=== PATIENT | female | born 1980 | race Two or more races ===

== ENCOUNTER 2018-03-01 22:14 | Emergency (ER) | payer SELFPAY ==
[~2018-03-01] VITALS: Ht 152.4 cm; Wt 68.0 kg
[2018-03-01] MEDS ORDERED: ONDANSETRON PF 4 MG/2 ML VIAL. IV ONE (22:45)
[2018-03-01] MEDS ORDERED: fentaNYL PF VIAL 100 MCG/2 ML VIAL IV ONE (22:45)
[2018-03-01 22:47] LABS: BILIRUBIN,URINE NEGATIVE (NEG); CLARITY,URINE CLEAR; COLOR,URINE YELLOW; NITRITE,URINE NEGATIVE (NEG); PH,URINE 6.5; PROTEIN,URINE NEGATIVE (NEG-TRACE); UROBILINOGEN,URINE 0.2 mg/dL (0.2 mg/dL)
[2018-03-01 22:49] LABS: BASO % 0 % (0-3); EOS # 0.2 x10^3/uL (0.0-0.7); EOS % 2 % (0-3); HEMATOCRIT 39.9 % (36.0-47.0); HEMOGLOBIN 14.1 g/dL (12.0-15.5); LYMPH # 3.9 x10^3/uL (1.0-4.8); LYMPH % 31 % (24-48); MEAN CORPUSCULAR HEMOGLOBIN 30 pg (25-35); MEAN CORPUSCULAR HGB CONC 35 g/dL (31-37); MEAN CORPUSCULAR VOLUME 85 fL (79-100); MONO # 0.8 x10^3/uL (0.0-1.1); MONO % 6 % (0-9); NEUT # 7.6 x10^3uL (1.8-7.7); NEUT % 61 % (31-73); PLATELET COUNT 267 x10^3/uL (140-400); RED BLOOD COUNT 4.69 x10^6/uL (3.50-5.40); RED CELL DISTRIBUTION WIDTH 12.9 % (11.5-14.5); WHITE BLOOD COUNT 12.4 x10^3/uL (4.0-11.0)
[2018-03-01 22:54] LABS: CREATININE 0.9 mg/dL (0.6-1.0); GFR 70.1; POTASSIUM 3.7 mmol/L (3.5-5.1)
[2018-03-01 22:54] LABS: BACTERIA,URINE MODERATE /HPF (0-FEW); SQUAMOUS EPITHELIAL CELL,UR MOD /LPF
[2018-03-01 22:55] LABS: RBC,URINE 0 /HPF (0-2)
[2018-03-01 22:59] LABS: ALBUMIN 3.4 g/dL (3.4-5.0); ALBUMIN/GLOBULIN RATIO 0.7 (1.0-1.7); TOTAL BILIRUBIN 0.2 mg/dL (0.2-1.0)
[2018-03-01] MEDS ORDERED: FAMOTIDINE 20 MG/2 ML VIAL IVP ONE (23:00)
--- NOTE | 2018-03-01 23:42 | RAD ---
Examination: ABDOMEN LTD History: ruq pain x 5 hrs
ml gassed out
distened gb with gallstones, normal wall and cbd
rt inf kidney ?? parapelvic cyst Comparison/Correlation: None Findings: Right upper quadrant ultrasound exam was performed. Overlying bowel gas limits evaluation. There are a few calculi identified within the gallbladder measuring up to 2.2 cm diameter with associated shadowing. Gallbladder wall thickness is normal. Common bile duct diameter is unremarkable. No intrahepatic biliary dilatation. Inferior vena cava is unremarkable. Proximal pancreas is normal. Distal pancreas is obscured by bowel gas. Right kidney measures 9.8 cm x 6.17 x 5.4 cm. Parapelvic cysts involving the right kidney measuring up to 1 cm diameter appears to present. No calyceal distention identified. Portal venous flow is normal. Impression: Cholelithiasis without findings of acute cholecystitis or biliary dilatation. Electronically signed by: Aden Cho MD (03/01/2018 11:38 PM) [facility]
[2018-03-02] MEDS ORDERED: LIDO:MAALOX 1:1 20 ML SINGLE DOSE. SWSW ONE
--- NOTE | 2018-03-02 00:12 | PHYS DOC ---
Past Medical History Past Medical History: No Pertinent History Past Surgical History: Alcohol Use: None Drug Use: None Adult General Chief Complaint Chief Complaint: ABDOMINAL PAIN HPI HPI Patient is a 38 year old Malay-speaking speaking female presents acute onset epigastric pain starting approximately 5 hours prior to ED arrival. Pain is located midepigastric region is rated moderate to severe radiates to back. It is associated with nausea without vomiting. It is unrelieved with Tylenol or ibuprofen. Is not associated with diarrhea, constipation, or flank pain. No hematuria, dysuria or urinary frequency urgency. No prior abdominal surgeries. Additional history obtained from patient's spouse who is by bedside[] Review of Systems Review of Systems Review of symptoms as per history of present illness. All other review symptoms are negative. All other systems were reviewed and found to be within normal limits, except as documented in this note. Current Medications Current Medications Current Medications Medications (Trade) Dose Ordered Sig/Kristen Start Time Stop Time Status Last Admin Dose Admin Famotidine (Pepcid Vial) 20 mg 1X ONCE 03/01/18 23:00 03/01/18 23:01 DC 03/01/18 22:59 20 MG Fentanyl Citrate (Fentanyl 2ml Vial) 50 mcg 1X ONCE 03/01/18 22:45 03/01/18 22:46 DC 03/01/18 22:59 50 MCG Info (CONTRAST GIVEN -- Rx MONITORING) 1 each PRN DAILY PRN 03/02/18 00:45 03/04/18 00:44 Iohexol (Omnipaque 300 Mg/ml) 75 ml 1X ONCE 03/02/18 00:45 03/02/18 00:46 DC 03/02/18 00:43 75 ML Morphine Sulfate (Morphine Sulfate) 4 mg 1X ONCE 03/02/18 00:30 03/02/18 00:31 DC 03/02/18 00:54 4 MG Multi-Ingredient Mouthwash/Gargle (Gi Cocktail) 30 ml 1X ONCE 03/02/18 00:00 03/02/18 00:01 DC 03/02/18 00:28 30 ML Ondansetron HCl (Zofran) 4 mg 1X ONCE 03/01/18 22:45 03/01/18 22:46 DC 03/01/18 22:59 4 MG Allergies Allergies Allergies Coded Allergies Type Severity Reaction Last Updated Verified No Known Drug Allergies 03/01/18 No Physical Exam Physical Exam Constitutional: Well developed, well nourished, discomfort secondary to pain.. [ ] HENT: Normocephalic, atraumatic, bilateral external ears normal, oropharynx moist, no oral exudates, nose normal. [] Eyes: PERRLA, EOMI, conjunctiva normal. [] Neck: Normal range of motion. [] Cardiovascular:Heart rate regular rhythm, no murmur [] Lungs & Thorax: Bilateral breath sounds clear to auscultation [] Abdomen: Bowel sounds normal, soft, use midepigastric pain with guarding.. [] Skin: Warm, dry, no erythema, no rash. [] Back: No tenderness, no CVA tenderness. [] Extremities: No tenderness, no edema. [] Neurologic: Alert and oriented X 3, normal motor function, normal sensory function, no focal deficits noted. [] Psychologic: Affect normal, judgement normal, mood normal. [] Current Patient Data Vital Signs Vital Signs Date Time Temp Pulse Resp B/P (MAP) Pulse Ox O2 Delivery O2 Flow Rate FiO2 03/02/18 00:56 97 22 150/96 (114) 100 03/02/18 00:54 Room Air 03/01/18 22:26 98.1 98.1 Lab Values Laboratory Tests Test 03/01/18 22:20 03/01/18 22:29 03/01/18 22:35 Urine Collection Type Unknown Urine Color Yellow Urine Clarity Clear Urine pH 6.5 Urine Specific [place] 1.015 Urine Protein Negative mg/dL (NEG-TRACE) Urine Glucose (UA) Negative mg/dL (NEG) Urine Ketones (Stick) Negative mg/dL (NEG) Urine Blood Negative (NEG) Urine Nitrite Negative (NEG) Urine Bilirubin Negative (NEG) Urine Urobilinogen Dipstick 0.2 mg/dL (0.2 mg/dL) Urine Leukocyte Esterase Moderate (NEG) Urine RBC 0 /HPF (0-2) Urine WBC 5-10 /HPF (0-4) Urine Squamous Epithelial Cells Mod /LPF Urine Bacteria Moderate /HPF (0-FEW) Urine Mucus Mod /LPF POC Urine HCG, Qualitative Hcg negative (Negative) White Blood Count 12.4 x10^3/uL (4.0-11.0) H Red Blood Count 4.69 x10^6/uL (3.50-5.40) Hemoglobin 14.1 g/dL (12.0-15.5) Hematocrit 39.9 % (36.0-47.0) Mean Corpuscular Volume 85 fL (79-100) Mean Corpuscular Hemoglobin 30 pg (25-35) Mean Corpuscular Hemoglobin Concent 35 g/dL (31-37) Red Cell Distribution Width 12.9 % (11.5-14.5) Platelet Count 267 x10^3/uL (140-400) Neutrophils (%) (Auto) 61 % (31-73) Lymphocytes (%) (Auto) 31 % (24-48) Monocytes (%) (Auto) 6 % (0-9) Eosinophils (%) (Auto) 2 % (0-3) Basophils (%) (Auto) 0 % (0-3) Neutrophils # (Auto) 7.6 x10^3uL (1.8-7.7) Lymphocytes # (Auto) 3.9 x10^3/uL (1.0-4.8) Monocytes # (Auto) 0.8 x10^3/uL (0.0-1.1) Eosinophils # (Auto) 0.2 x10^3/uL (0.0-0.7) Basophils # (Auto) 0.0 x10^3/uL (0.0-0.2) Sodium Level 139 mmol/L (136-145) Potassium Level 3.7 mmol/L (3.5-5.1) Chloride Level 103 mmol/L (98-107) Carbon Dioxide Level 27 mmol/L (21-32) Anion Gap 9 (6-14) Blood Urea Nitrogen 14 mg/dL (7-20) Creatinine 0.9 mg/dL (0.6-1.0) Estimated GFR (Cockcroft-Gault) 70.1 BUN/Creatinine Ratio 16 (6-20) Glucose Level 106 mg/dL (70-99) H Calcium Level 9.0 mg/dL (8.5-10.1) Total Bilirubin 0.2 mg/dL (0.2-1.0) Aspartate Amino Transferase (AST) 25 U/L (15-37) Alanine Aminotransferase (ALT) 56 U/L (14-59) Alkaline Phosphatase 83 U/L (46-116) Total Protein 8.0 g/dL (6.4-8.2) Albumin 3.4 g/dL (3.4-5.0) Albumin/Globulin Ratio 0.7 (1.0-1.7) L Lipase 188 U/L (73-393) Laboratory Tests 03/01/18 22:35 Laboratory Tests 03/01/18 22:35 EKG EKG [] Radiology/Procedures Radiology/Procedures [Abdominal ultrasound: Cholelithiasis without evidence of cholecystitis.] Course & Med Decision Making Course & Med Decision Making Pertinent Labs and Imaging studies reviewed. (See chart for details) [IV pain medication, and antacids and nausea medication given with limited relief. Gallbladder ultrasound does not show evidence of cholecystitis. GI cocktail given with] Dragon Disclaimer Dragon Disclaimer This electronic medical record was generated, in whole or in part, using a voice recognition dictation system. Departure Departure Impression: Primary Impression: Cholelithiasis Disposition: HOME, SELF-CARE Condition: GOOD Referrals: NO PCP (PCP) Scripts Promethazine Hcl (PROMETHAZINE HCL) 12.5 Mg Tablet 1 TAB PO Q6-8HRS, #10 TAB 1 Refill Prov: ELÍAS MORELOS DO 03/02/18 Hydrocodone/Acetaminophen (Hydrocodone-Acetamin 5-325 mg) 1 Each Tablet 1 EACH PO Q4-6HRS PRN for PAIN, #10 TAB Prov: ELÍAS MORELOS DO 03/02/18 ELÍAS MORELOS DO Mar 02, 2018 00:12
[2018-03-02] MEDS ORDERED: MORPHINE SULFATE 4 MG/ML VIAL. IV ONE (00:30)
[2018-03-02] MEDS ORDERED: CONTRAST GIVEN. MC PRN (00:45)
[2018-03-02] MEDS ORDERED: IOHEXOL 300 MG/ML 100ML VIAL. IV ONE (00:45)
[2018-03-02 00:56] VITALS: BP 150/96
--- NOTE | 2018-03-02 00:59 | RAD ---
CT abdomen pelvis with contrast. HISTORY: Epigastric pain CT scan of the abdomen and pelvis was done using 75 mL Omnipaque 300 contrast. Lung bases are clear. There is no effusion. There is spondylolysis at L5 with grade 1 spondylolisthesis. Liver is normal in appearance. The gallbladder is distended without a calcified gallstone. The gallbladder wall is not thickened. Spleen and adrenal glands are normal. Pancreas is normal. There is no mass or hydronephrosis in the kidneys. There is no free air or ascites or bowel obstruction. Bowel pattern is normal. Appendix was normal. Uterus and ovaries are unremarkable. IMPRESSION: 1. Distended gallbladder. 2. Normal appendix. 3. No bowel obstruction or other acute finding in the abdomen or pelvis. PQRS Compliance Statement: One or more of the following individualized dose reduction techniques were utilized for this examination: 1. Automated exposure control 2. Adjustment of the mA and/or kV according to patient size 3. Use of iterative reconstruction technique Electronically signed by: Chirag Turner MD (03/02/2018 12:55 AM) [email or web address]
[2018-03-02] MEDS ORDERED: HYDR-2759 PO (01:26)
[2018-03-02] MEDS ORDERED: PROM12.58 PO (01:26)
[2018-03-02] MEDS ORDERED: IOHEXOL 300 MG/ML 100ML VIAL. ONE (05:27)
--- NOTE | 2018-03-06 18:01 | VNOTE ---
CALL BACK NOTE CALL BACK Microbiology 03/01/18 Urine Culture - Final, Complete 03/01/18 Urine Culture Result 1 (RIAZ) - Final, Complete 03/01/18 Antimicrobic Susceptibility - Final, Complete Called patient regarding her urine culture, she does not speak Armenian. Prescriptions sent to her address CHLOE CALIXTO APRN Mar 06, 2018 18:01
== END 2018-03-02 01:42 | disposition home or self-care (01) ==
LOC: ER 22:14
DX: K80.20 Calculus of gallbladder without cholecystitis without obstruction (principal); Z98.890 Other specified postprocedural states
CPT/HCPCS: 36415; 74177; 76705; 80053; 81001; 81025; 83690; 85025; 87086; 96374; 96375; 99284; J2270; J2405; J3010; J3490; Q9967; 87186

== ENCOUNTER 2018-10-08 17:58 | Emergency (ER) | payer SELFPAY ==
[~2018-10-08] VITALS: Ht 162.6 cm; Wt 82.6 kg
[~2018-10-08 17:58] MED LIST: HYDR-2759 PO; PROM12.58 PO
[2018-10-08] MEDS ORDERED: fentaNYL PF VIAL 100 MCG/2 ML VIAL IV ONE (19:00)
[2018-10-08] MEDS ORDERED: IV NORMAL SALINE 1000ML BAG 1,000 ML IV ONE (19:00)
[2018-10-08] MEDS ORDERED: ONDANSETRON PF 4 MG/2 ML VIAL. IV ONE (19:00)
[2018-10-08 19:20] LABS: BASO % 0 % (0-3); EOS # 0.2 x10^3/uL (0.0-0.7); EOS % 2 % (0-3); HEMATOCRIT 40.7 % (36.0-47.0); HEMOGLOBIN 14.2 g/dL (12.0-15.5); LYMPH # 2.4 x10^3/uL (1.0-4.8); LYMPH % 25 % (24-48); MEAN CORPUSCULAR HEMOGLOBIN 30 pg (25-35); MEAN CORPUSCULAR HGB CONC 35 g/dL (31-37); MEAN CORPUSCULAR VOLUME 85 fL (79-100); MONO # 0.7 x10^3/uL (0.0-1.1); MONO % 8 % (0-9); NEUT # 6.1 x10^3/uL (1.8-7.7); NEUT % 65 % (31-73); PLATELET COUNT 264 x10^3/uL (140-400); RED BLOOD COUNT 4.78 x10^6/uL (3.50-5.40); RED CELL DISTRIBUTION WIDTH 13.6 % (11.5-14.5); WHITE BLOOD COUNT 9.5 x10^3/uL (4.0-11.0)
[2018-10-08 19:30] LABS: PREG TEST PT QUAL NEGATIVE (NEG)
[2018-10-08 19:32] LABS: CALCIUM 8.7 mg/dL (8.5-10.1); CREATININE 0.7 mg/dL (0.6-1.0); GFR 93.6; POTASSIUM 3.6 mmol/L (3.5-5.1)
[2018-10-08 19:34] LABS: ALBUMIN 3.4 g/dL (3.4-5.0); ALBUMIN/GLOBULIN RATIO 0.8 (1.0-1.7); C-REACTIVE PROTEIN 13.1 mg/L (0-3.3); TOTAL BILIRUBIN 0.2 mg/dL (0.2-1.0); TOTAL PROTEIN 7.6 g/dL (6.4-8.2)
[2018-10-08 19:50] LABS: BILIRUBIN,URINE NEGATIVE (NEG); CLARITY,URINE CLEAR; COLOR,URINE YELLOW; NITRITE,URINE NEGATIVE (NEG); PH,URINE 6.5; PROTEIN,URINE NEGATIVE (NEG-TRACE)
[2018-10-08 19:57] LABS: SQUAMOUS EPITHELIAL CELL,UR MOD /LPF
[2018-10-08 19:58] LABS: BACTERIA,URINE FEW /HPF (0-FEW); RBC,URINE 0 /HPF (0-2); WBC,URINE 0 /HPF (0-4)
--- NOTE | 2018-10-08 20:16 | PHYS DOC ---
Past Medical History Past Medical History: No Pertinent History Past Surgical History: Alcohol Use: None Drug Use: None Adult General Chief Complaint Chief Complaint: ABDOMINAL PAIN HPI HPI Patient is a 38 year old female presents with suprapubic pain, multiple episodes of watery stool/diarrhea for the past 2 days. Reports urinary frequency urgency. No vomiting. No fever chills, sweats. No flank pain. Last menstrual period was 10 days ago. No prior abdominal surgery. [] Review of Systems Review of Systems Review symptoms as per history of present illness. All other review symptoms are negative. All other systems were reviewed and found to be within normal limits, except as documented in this note. Current Medications Current Medications Current Medications Medications (Trade) Dose Ordered Sig/Kristen Start Time Stop Time Status Last Admin Dose Admin Fentanyl Citrate (Fentanyl 2ml Vial) 50 mcg 1X ONCE 10/08/18 19:00 10/08/18 19:01 DC 10/08/18 19:27 50 MCG Info (CONTRAST GIVEN -- Rx MONITORING) 1 each PRN DAILY PRN 10/08/18 20:45 10/10/18 20:44 Iohexol (Omnipaque 300 Mg/ml) 75 ml 1X ONCE 10/08/18 20:30 10/08/18 20:33 DC 10/08/18 21:01 75 ML Ondansetron HCl (Zofran) 4 mg 1X ONCE 10/08/18 19:00 10/08/18 19:01 DC 10/08/18 19:27 4 MG Sodium Chloride 1,000 ml @ 1,000 mls/hr 1X ONCE 10/08/18 19:00 10/08/18 19:59 DC 10/08/18 19:27 1,000 MLS/HR Allergies Allergies Allergies Coded Allergies Type Severity Reaction Last Updated Verified No Known Drug Allergies 03/01/18 No Physical Exam Physical Exam Constitutional: Well developed, well nourished, no acute distress, non-toxic appearance. [] HENT: Normocephalic, atraumatic, bilateral external ears normal, oropharynx moist, no oral exudates, nose normal. [] Eyes: PERRLA, EOMI, conjunctiva normal, no discharge. [] Neck: Normal range of motion, no tenderness, supple, no stridor. [] Cardiovascular:Heart rate regular rhythm, no murmur [] Lungs & Thorax: Bilateral breath sounds clear to auscultation [] Abdomen: Bowel sounds normal, soft, no tenderness, no masses, no pulsatile masses. [] Skin: Warm, dry, no erythema, no rash. [] Back: No tenderness, no CVA tenderness. [] Extremities: No tenderness, no cyanosis, no clubbing, ROM intact, no edema. [] Neurologic: Alert and oriented X 3, normal motor function, normal sensory function, no focal deficits noted. [] Psychologic: Affect normal, judgement normal, mood normal. [] Current Patient Data Vital Signs Vital Signs Date Time Temp Pulse Resp B/P (MAP) Pulse Ox O2 Delivery O2 Flow Rate FiO2 10/08/18 20:31 73 129/83 (98) 98 Room Air 10/08/18 18:43 98.4 16 98.4 Lab Values Laboratory Tests Test 10/08/18 18:37 10/08/18 19:10 Urine Collection Type Unknown Urine Color Yellow Urine Clarity Clear Urine pH 6.5 Urine Specific [place] 1.010 Urine Protein Negative mg/dL (NEG-TRACE) Urine Glucose (UA) Negative mg/dL (NEG) Urine Ketones (Stick) Negative mg/dL (NEG) Urine Blood Negative (NEG) Urine Nitrite Negative (NEG) Urine Bilirubin Negative (NEG) Urine Urobilinogen Dipstick 1.0 mg/dL (0.2 mg/dL) Urine Leukocyte Esterase Negative (NEG) Urine RBC 0 /HPF (0-2) Urine WBC 0 /HPF (0-4) Urine Squamous Epithelial Cells Mod /LPF Urine Bacteria Few /HPF (0-FEW) White Blood Count 9.5 x10^3/uL (4.0-11.0) Red Blood Count 4.78 x10^6/uL (3.50-5.40) Hemoglobin 14.2 g/dL (12.0-15.5) Hematocrit 40.7 % (36.0-47.0) Mean Corpuscular Volume 85 fL (79-100) Mean Corpuscular Hemoglobin 30 pg (25-35) Mean Corpuscular Hemoglobin Concent 35 g/dL (31-37) Red Cell Distribution Width 13.6 % (11.5-14.5) Platelet Count 264 x10^3/uL (140-400) Neutrophils (%) (Auto) 65 % (31-73) Lymphocytes (%) (Auto) 25 % (24-48) Monocytes (%) (Auto) 8 % (0-9) Eosinophils (%) (Auto) 2 % (0-3) Basophils (%) (Auto) 0 % (0-3) Neutrophils # (Auto) 6.1 x10^3/uL (1.8-7.7) Lymphocytes # (Auto) 2.4 x10^3/uL (1.0-4.8) Monocytes # (Auto) 0.7 x10^3/uL (0.0-1.1) Eosinophils # (Auto) 0.2 x10^3/uL (0.0-0.7) Basophils # (Auto) 0.0 x10^3/uL (0.0-0.2) Sodium Level 142 mmol/L (136-145) Potassium Level 3.6 mmol/L (3.5-5.1) Chloride Level 105 mmol/L (98-107) Carbon Dioxide Level 27 mmol/L (21-32) Anion Gap 10 (6-14) Blood Urea Nitrogen 9 mg/dL (7-20) Creatinine 0.7 mg/dL (0.6-1.0) Estimated GFR (Cockcroft-Gault) 93.6 BUN/Creatinine Ratio 13 (6-20) Glucose Level 99 mg/dL (70-99) Calcium Level 8.7 mg/dL (8.5-10.1) Total Bilirubin 0.2 mg/dL (0.2-1.0) Aspartate Amino Transferase (AST) 36 U/L (15-37) Alanine Aminotransferase (ALT) 64 U/L (14-59) H Alkaline Phosphatase 71 U/L (46-116) C-Reactive Protein, Quantitative 13.1 mg/L (0-3.3) H Total Protein 7.6 g/dL (6.4-8.2) Albumin 3.4 g/dL (3.4-5.0) Albumin/Globulin Ratio 0.8 (1.0-1.7) L Serum Test, Qualitative Negative (NEG) Laboratory Tests 10/08/18 19:10 Laboratory Tests 10/08/18 19:10 EKG EKG [] Radiology/Procedures Radiology/Procedures [Ct abd/pelvis: No acute findings per radiology report] Course & Med Decision Making Course & Med Decision Making Pertinent Labs and Imaging studies reviewed. (See chart for details) [Patient's symptoms resolved while in the ED. Abdomen, labs, imaging unremarkable on review and repeat evaluation. Recommend supportive care, watchful waiting and PCP follow-up. Return precautions reviewed] Draghaylie Disclaimer Dragon Disclaimer This electronic medical record was generated, in whole or in part, using a voice recognition dictation system. Departure Departure Impression: Primary Impression: Abdominal pain Disposition: HOME, SELF-CARE Condition: GOOD Referrals: NO PCP (PCP) Patient Instructions: Abdominal Pain (Nonspecific) Additional Instructions: Please take Pepto-Bismol for diarrhea and dicyclomine as prescribed for abdominal pain. Follow up with your PCP 2-3 days for reevaluation if symptoms persist. Return to the ED if new or worsening symptoms. Scripts Dicyclomine Hcl (DICYCLOMINE HCL) 20 Mg Tablet 1 TAB PO TID, #30 TAB 1 Refill Prov: ELÍAS MORELOS DO 10/08/18 ELÍAS MORELOS DO Oct 08, 2018 20:16
[2018-10-08] MEDS ORDERED: IOHEXOL 300 MG/ML 100ML VIAL. IV ONE (20:30)
[2018-10-08 20:31] VITALS: BP 129/83
[2018-10-08] MEDS ORDERED: CONTRAST GIVEN. MC PRN (20:45)
--- NOTE | 2018-10-08 21:21 | RAD ---
Exam: CT abdomen and pelvis with contrast INDICATION: Suprapubic pain TECHNIQUE: Sequential axial images through the abdomen and pelvis obtained following the administration of 75 mL of Omni 300 IV contrast. Sagittal and coronal reformatted images were reconstructed from the axial data and reviewed. Comparisons: 03/02/2018 FINDINGS: Heart size is normal. No pericardial effusion. Visualized lung bases are clear. No pleural effusion. Liver, spleen, pancreas, gallbladder and adrenals are unremarkable. Kidneys demonstrate symmetric enhancement. No perinephric inflammation or hydronephrosis. No renal or ureteral calculi are identified. Bladder is decompressed not well evaluated. Uterus is not enlarged. No abnormal adnexal mass. Large and small bowel are unremarkable. Appendix is normal. No free intra-abdominal air or fluid. Small hiatal hernia. No obstruction. Abdominal aorta has normal course and caliber. Abdominal vasculature is patent. No enlarged intra-abdominal lymph nodes are identified. Bilateral pars interarticularis defects at L5 with grade 1 anterolisthesis of L5 on S1. No suspicious osseous lesion or acute fracture. IMPRESSION: No acute process identified within the abdomen or pelvis. Exposure: One or more of the following in the visualized dose reduction techniques were utilized for this examination: 1. Automated exposure control 2. Adjustment of the MA and/or KV according to patient size 3. Use of iterative of reconstructive technique Electronically signed by: Shaheen Fajardo MD (10/08/2018 9:18 PM) [email or web address]
[2018-10-08] MEDS ORDERED: DICY20TA3 PO (22:18)
== END 2018-10-08 22:33 | disposition home or self-care (01) ==
LOC: ER 17:58
DX: R10.30 Lower abdominal pain, unspecified (principal); R19.7 Diarrhea, unspecified; R35.0 Frequency of micturition; R39.15 Urgency of urination; Z98.890 Other specified postprocedural states
CPT/HCPCS: 36415; 74177; 80053; 81001; 84703; 85025; 86140; 87040; 96361; 96374; 96375; 99285; J2405; J3010; J7030; Q9967; 29125; 99283